=== PATIENT | male | born 1975 | race Caucasian/White ===

== ENCOUNTER 2019-07-11 10:51 | Emergency (ER) | payer BC ==
[2019-07-11 12:54] VITALS: BP 148/81
--- NOTE | 2019-07-11 13:03 | UC ---
Ear Complaint HPI - HPI Summary HPI Summary: Pt presents with c/o left ear pain, discharge and loss of hearing. Pt has hx of ear infections and had bilateral ear tubes placed 3-[address] Freedman. - History of Current Complaint Chief Complaint: UCGeneralIllness Stated Complaint: R EAT COMP Time Seen by Provider: 07/11/19 12:57 Hx Obtained From: Patient Onset/Duration: Gradual Onset, Lasting Days, Still Present Severity Initially: Moderate Severity Currently: Severe Pain Intensity: 10 Associated Signs/Symptoms: Positive: Discharge, Hearing Loss, URI Symptoms - Allergies/Home Medications Allergies/Adverse Reactions: Allergies Allergy/AdvReac Type Severity Reaction Status Date / Time Penicillins Allergy Rash Verified 07/11/19 12:50 PMH/Surg Hx/FS Hx/Imm Hx - Additional Past Medical History Additional PMH: Pt also has hx of psoriasis and states that he is having a flare right now. Pt is requesting refill on previously prescribed medication for skin disorder. Previously Healthy: Yes - Surgical History Surgical History: Yes Surgery Procedure, Year, and Place: left knee surgery, torn miniscus and partial tear ACL - Family History Known Family History: Positive: Cardiac Disease - Social History Occupation: Employed Full-time Lives: With Family Alcohol Use: Occasionally Substance Use Type: None Smoking Status (MU): Never Smoked Tobacco Have You Smoked in the Last Year: No - Immunization History Vaccination Up to Date: No Review of Systems All Other Systems Reviewed And Are Negative: Yes Constitutional: Positive: Negative Skin: Positive: Rash Eyes: Positive: Negative ENT: Positive: Ear Ache, Other - loss of hearing, left ear discharge. Respiratory: Positive: Negative Cardiovascular: Positive: Negative Gastrointestinal: Positive: Negative Genitourinary: Positive: Negative Motor: Positive: Negative Neurovascular: Positive: Negative Musculoskeletal: Positive: Negative Neurological: Positive: Negative Psychological: Positive: Negative Is Patient Immunocompromised?: No Physical Exam Triage Information Reviewed: Yes Appearance: Well-Appearing, Obese Vital Signs: Initial Vital Signs Temp 97.8 F 07/11/19 12:50 Pulse 89 07/11/19 12:50 Resp 16 07/11/19 12:50 BP 148/81 07/11/19 12:50 Pulse Ox 99 07/11/19 12:50 Vital Signs Reviewed: Yes Eye Exam: Normal ENT: Positive: Other - right ear canal erythematous, swolen, clear disachrge. small viewing of right TM that appeared to be bulgin and with wetzel fluid behind TM. LEft TM, , ear tube appreciate, TM erythematous and "fluid bubbles " Dental Exam: Normal Neck exam: Normal Respiratory Exam: Normal Respiratory: Positive: No respiratory distress Musculoskeletal Exam: Normal Neurological Exam: Normal Psychological Exam: Normal Skin: Positive: Rashes, Other - psoriatic rash on upper extremities, mild, falky with white, silvery dry skin Ear Complaint Course/Dx - Course Course Of Treatment: Pt was recommended to [facility] for furhter examination and treatment of psoriasis. Pt requested local provider for f/u - Differential Dx/Diagnosis Differential Diagnosis/HQI/PQRI: Otitis Externa, Otitis Media Provider Diagnosis: Psoriasis, Otitis externa of right ear, Otitis media of right ear Discharge ED - Sign-Out/Discharge Documenting (check all that apply): Patient Departure All imaging exams completed and their final reports reviewed: No Studies - Discharge Plan Condition: Stable Disposition: HOME Prescriptions: Azithromycin TAB* [Zithromax TAB (Z-GENET) 250 mg #6 tabs] 2 tab PO .TODAY, THEN 1 DAILY #1 genet Fluocinonide 0.05% CREAM(NF) 1 applic TOPICAL TID #1 tube Neomyc/Polym/HC 1% OTIC SUSP* [Cortisporin Otic Susp 1%*] 4 drop RIGHT EAR QID 7 Days #1 btl Patient Education Materials: Otitis Externa (ED), Ear Infection (ED) [place]errals: [facility] [place] [facility] [place] [facility] [place]] Francy Cavanaugh MD [Medical Doctor] - If Needed No Primary Care Phys,NOPCP [Primary Care Provider] - Additional Instructions: Please follow up with a PCP as soon as possible. We have also provided a recommendation to a Rheumatology provider for your untreated skin condition. Please follow up as needed. - Billing Disposition and Condition Condition: STABLE Disposition: Home - Attestation Statements Provider Attestation: I was available for consult. This patient was seen by the [facility]. The patient was not presented to , seen by or examined by ma -Desi Fine MD
== END 2019-07-11 13:12 | disposition home or self-care (01) ==
LOC: UCCORT 10:51
DX: L40.9 Psoriasis, unspecified (principal); H60.91 Unspecified otitis externa, right ear; H66.91 Otitis media, unspecified, right ear; Z88.0 Allergy status to penicillin
CPT/HCPCS: 99202; G0463